=== PATIENT | male | born 1960 | race Two or more races ===

== ENCOUNTER 2017-08-08 11:11 | Inpatient (IN) | payer OTHER ==
[~2017-08-08] VITALS: Ht 175.3 cm; Wt 82.6 kg
--- NOTE | 2017-08-08 11:11 | NUR ---
BIB [facility] C/O CHEST PAIN/PRESSURE 20 MIN MANAGER TALENT. RECEIVED 2 SPRAYS NITRO, [address] PATIENT STATING CHEST PAIN 1/10 RIGHT NOW. BREATHING EVEN AND UNLABORED. NO SOB. VITALS STABLE. EMT AT BEDSIDE FOR EKG. IV INTACT ON LEFT HAND, 20 G. SAFETY AND COMFORT MEASURES IN PLACE. AWAITING MD ORDERS.
--- NOTE | 2017-08-08 11:17 | NUR ---
AT BEDSIDE FOR EVAL
--- NOTE | 2017-08-08 11:21 | NUR ---
IMAGING CLERK AT BEDSIDE
--- NOTE | 2017-08-08 11:23 | NUR ---
SALVAGE MECHANIC AT BEDSIDE FOR BLOOD DRAW.
[2017-08-08 11:33] LABS: BASOPHILS % (AUTO) 0.8 % (0.0-2.0); EOSINOPHILS % (AUTO) 0.9 % (0.0-6.0); HEMATOCRIT 45 % (39-51); HEMOGLOBIN 14.8 g/dL (13.5-17.5); LYMPHOCYTES # (AUTO) 1.5 /CMM (0.8-4.8); LYMPHOCYTES % (AUTO) 29.6 % (20.0-44.0); MEAN CORPUSCULAR HEMOGLOBIN 29 PG (26.0-33.0); MEAN CORPUSCULAR HGB CONC 33 g/dl (31.0-36.0); MEAN CORPUSCULAR VOLUME 88 fL (80-96); MONOCYTES # (AUTO) 0.3 /CMM (0.1-1.30); MONOCYTES % (AUTO) 6.6 % (2.0-12.0); NEUTROPHILS # (AUTO) 3.2 /CMM (1.8-8.9); NEUTROPHILS % (AUTO) 62.1 % (43.0-81.0); PLATELET COUNT (AUTO) 198 /CMM (150-450); RDW COEFFICIENT OF VARIATION 12.6 (11.5-15.0); RED BLOOD CELL COUNT(AUTO) 5.09 MIL/uL (4.5-6.0)
[2017-08-08 11:42] LABS: CALCIUM, SERUM 8.2 mg/dL (8.5-10.1); CREATININE 1.1 mg/dL (0.6-1.3); POTASSIUM 4.4 mmol/L (3.5-5.1)
[2017-08-08 11:46] LABS: INR 1.03 (0.87-1.13); PROTHROMBIN TIME 10.7 SECS (9.5-12.7)
[2017-08-08] MEDS ORDERED: VALS80TA2 PO (11:50)
[2017-08-08 11:51] LABS: TROPONIN I 0.018 ng/mL (0.00-0.056)
--- NOTE | 2017-08-08 12:27 | NUR ---
NEW IV STARTED ON RAC, 18 G FOR CTA.
--- NOTE | 2017-08-08 12:28 | NUR ---
PATIENT TAKEN TO CTA VIA STRETCHER.
--- NOTE | 2017-08-08 12:40 | NUR ---
PATIENT RETURNED FROM CT IN STABLE CONDITION.
--- NOTE | 2017-08-08 13:00 | NUR ---
REPORT GIVEN TO TO SOOD FOR ADMISSION.
--- NOTE | 2017-08-08 13:36 | NUR ---
[facility] PAGED CLIF DANG MOWER SHARPENER [phone]
--- NOTE | 2017-08-08 13:47 | NUR ---
CALLED [employer] TEACHING SUPERVISOR WAS PAGED.
[2017-08-08 14:40] VITALS: BP 123/75
--- NOTE | 2017-08-08 14:40 | NUR ---
RN NOTES RECEIVED PT FOR ER IN ROOM 119-1, A/Ox4, RESPIRATION EVEN AND UNLABORED, NO DISTRESS NOTED, DAVIDSON ANY CHEST PAIN AT THIS TIME. ON TELE SR IN 80'S, L HAND IV G 20 AND R AC G 18 IV SITES CDI, SR UP x3, CALL LIGHT WITHIN EASY REACH , CONTINUE TO MONITOR PT CLOSELY AND NOTIFY MD FOR ANY SIGNIFICANT CHANGES .
--- NOTE | 2017-08-08 14:40 | NUR ---
PATIENT TRANSPORTED TO [facility] VIA ACLS PROTOCOL FOR ADMISSION. RNPAULINA TO PROVIDE DAO.
--- NOTE | 2017-08-08 18:13 | NUR ---
RN NOTES DR HOSKINS ON THE FLOOR SEEING THE PT, NEW ORDER RECEIVED , PT STABLE , ON TELE SR ,SUPPORTIVE FAMILY AT THE BEDSIDE, IVF NS AT 75CC/HR RUNNING VIA R AC IV SITE , CALL LIGHT WITHIN EASY REACH, WILL ENDORSE TO [employer] SURVEILLANCE OFFICER NURSE FOR DAO .
--- NOTE | 2017-08-08 19:20 | NUR ---
RN INITIAL NOTES RECEIVED PATIENT IN BED, AWAKE AND ALERT, PATIENT ON ROOM AIR WITH NO DISTRESS, DENIES ANY PAIN AND DISCOMFORT, NO C/O CHEST PAIN AT THIS TIME. PATIENT IS ALERT AND ORIENTED. SR ON TELE WITH HR OF 68. WITH IVF ORDERED RUNNING ON PATIENT'S R AC G18. WITH L HAND G20, FLUSHED AND PATENT WITH NO SIGNS OF INFILTRATION. PATIENT'S NEEDS ANTICIPATED AND MET. SAFETY AND COMFORT ENSURED. BED IN LOW AND LOCKED POSITION. CALL LIGHT IN REACH. WILL MONITOR.
[2017-08-08 20:00] VITALS: BP 115/67
--- NOTE | 2017-08-08 21:30 | NUR ---
RN NOTES ALL DUE HS MEDS GIVEN ORDERED. PATIENT INFORMED AND UPDATED WITH CURRENT PLAN OF CARE AND DIAGNOSTIC TESTS ORDERED. ALL QUESTIONS ANSWERED NEEDED, PATIENT VERBALIZED UNDERSTANDING. OBTAINED CONSENT FOR THE PLANNED CT OF ABD/PELVIS IN AM, FILED IN CHART. PATIENT'S NEEDS ANTICIPATED AND MET. CALL LIGHT IN REACH.
[2017-08-08 21:40] LABS: FREE PSA 0.46 ng/mL (0.00-45); PROSTATE SPECIFIC ANTIGEN SCR 1.3 ng/mL (0.00-4.00)
[2017-08-09] VITALS: BP 103/46
[2017-08-09 04:00] VITALS: BP 103/56
[2017-08-09 06:30] LABS: BASOPHILS % (AUTO) 0.4 % (0.0-2.0); EOSINOPHILS # (AUTO) 0.1 /CMM (0.0-0.7); EOSINOPHILS % (AUTO) 1.2 % (0.0-6.0); HEMATOCRIT 44 % (39-51); HEMOGLOBIN 15.2 g/dL (13.5-17.5); LYMPHOCYTES # (AUTO) 1.5 /CMM (0.8-4.8); LYMPHOCYTES % (AUTO) 31.5 % (20.0-44.0); MEAN CORPUSCULAR HEMOGLOBIN 30 PG (26.0-33.0); MEAN CORPUSCULAR HGB CONC 35 g/dl (31.0-36.0); MEAN CORPUSCULAR VOLUME 87 fL (80-96); MONOCYTES # (AUTO) 0.4 /CMM (0.1-1.30); MONOCYTES % (AUTO) 8.6 % (2.0-12.0); NEUTROPHILS # (AUTO) 2.7 /CMM (1.8-8.9); NEUTROPHILS % (AUTO) 58.3 % (43.0-81.0); PLATELET COUNT (AUTO) 176 /CMM (150-450); RDW COEFFICIENT OF VARIATION 13.2 (11.5-15.0); RED BLOOD CELL COUNT(AUTO) 5.05 MIL/uL (4.5-6.0); WHITE BLOOD COUNT (AUTO) 4.6 K/uL (4.3-11.0)
--- NOTE | 2017-08-09 06:30 | NUR ---
RN CLOSING NOTES PATIENT WITH NO ACUTE CHANGE IN CONDITION OBSERVED. ON ROOM AIR WITH NO DISTRESS. REMAINS SR AT 68. PATIENT IS AWAKE AND ALERT, NO C/O PAIN AND DISCOMFORT. IVF ORDERED, RUNNING ON PATIENT'S L HAND. PATIENT'S NEEDS ANTICIPATED AND MET. SAFETY AND COMFORT ENSURED. BED IN LOW AND LOCKED POSITION. CALL LIGHT IN REACH. WILL ENDORSE ACCORDINGLY FOR CONTINUITY OF CARE.
[2017-08-09 07:11] LABS: ALBUMIN 3.5 g/dL (3.4-5.0); BILIRUBIN,TOTAL 0.5 mg/dL (0.2-1.0); CALCIUM, SERUM 8.2 mg/dL (8.5-10.1); MAGNESIUM 1.8 mg/dL (1.8-2.4); POTASSIUM 4.2 mmol/L (3.5-5.1); TOTAL PROTEIN, SERUM 6.3 g/dL (6.4-8.2)
[2017-08-09 07:18] LABS: THYROID STIMULATING HORMONE 1.15 uIU/mL (0.358-3.74)
--- NOTE | 2017-08-09 07:20 | NUR ---
WATER TAXI DRIVER NOTES RECEIVED PATIENT IN BED, A/O X4. ON TELE MONITOR SINUS RHYTHM HR 70. APPEARS COMFORTABLE IN BED, ON ROOM AIR, NO SOB. IV NS INFUSING AT 75ML/HR, TOLERATING WELL. DENIES CHEST PAINT. PATIENT IS AMBULATORY. WILL CONT TO MONITOR.
[2017-08-09 08:00] VITALS: BP_SYST 136; BP_DIAS 84; BP_DIAS 89
[2017-08-09 12:00] VITALS: BP 126/85
[2017-08-09 16:00] VITALS: BP 124/81
--- NOTE | 2017-08-09 18:52 | NUR ---
FIRER WATERTENDER CLOSING NOTES PATIENT IN BED, A/O X3. ON TELE MONITOR SINUS RHYTHM HR 63. IV NS INFUSING AT 75ML/HR, TOLERATING WELL, NO SOB. POST PPD TESTING TODAY, LFA SITE LEFT UNCOVERED, NO INDURATION. DENIES CHEST PAIN DURING THE SHIFT. CALL LIGHT WITHIN REACH. ON ISOLATION AIRBORNE PRECAUTION OBSERVED. WILL ENDORSE TO MATERIAL HANDLER 1ST SHIFT RN FOR CONTINUITY OF CARE.
[2017-08-09 20:00] VITALS: BP 111/69
--- NOTE | 2017-08-09 20:00 | NUR ---
RN INITIAL NOTES RECEIVED ENDORSEMENT FROM PREVIOUS SHIFT. PATIENT PLACED ON AIRBORNE PRECAUTION, STRICTLY OBSERVED. PATIENT IS ALERT AND ORIENTED, DENIES ANY PAIN AND DISCOMFORT. PATIENT WITH NO DISTRESS. ON ROOM AIR. SR ON TELE WITH HR OF 64. PATIENT ABLE TO TAKE SHOWER PER REQUEST WITH ORDER OBTAINED. PATIENT WITH NO DISTRESS DURING SHOWER. REQUESTED TO BE OFF IVF AT THIS TIME TO REST AND DO ADLS. R AC AND L HAND PIV, FLUSHED AND PATENT, NO SIGNS OF INFILTRATION. PPD TEST DONE ON PATIENT'S L FOREARM, CHECKED AND NOTED WITH NO INDURATION AND REDNESS AT THIS TIME, LEFT UNCOVERED. UPDATED PATIENT WITH PLAN OF CARE, VERBALIZED UNDERSTANDING. PATIENT'S NEEDS ANTICIPATED AND MET. SAFETY AND COMFORT ENSURED. BED IN LOW AND LOCKED POSITION. CALL LIGHT IN REACH. WILL MONITOR.
[2017-08-10] VITALS: BP 103/69
[2017-08-10 04:00] VITALS: BP 108/70
--- NOTE | 2017-08-10 06:49 | NUR ---
RN CLOSING NOTES PATIENT WITH NO ACUTE DISTRESS OBSERVED OVERNIGHT. PATIENT WITH NO C/O PAIN AND DISCOMFORT. REMAINS SR ON TELE WITH HR KEPT IN THE 60s. ISOLATION PRECAUTIONS STRICLTY OBSERVED. NEEDS ANTICIPATED AND MET. SAFETY AND COMFORT ENSURED. BED IN LOW AND LOCKED POSITION. CALL LIGHT IN REACH. WILL ENDORSE ACCORDINGLY FOR CONTINUITY OF CARE. REMINDED PATIENT OF THE NEEDED SPUTUM SPECIMEN AND STOOL. PATIENT VERBALIZED UNDERSTANDING. WILL ENDORSE ACCORDINGLY FOR COLLECTION.
[2017-08-10 08:00] VITALS: BP 127/85
--- NOTE | 2017-08-10 11:58 | NUR ---
PER LAB SPUTUM SPECIMEN COLLECTED NOT ENOUGH FOR [employer],NEED TO REOBTAIN SPECIMEN AGAIN,RT MADE AWARE TO INDUCE SPUTUM.
[2017-08-10 12:00] VITALS: BP 113/68
--- NOTE | 2017-08-10 14:40 | NUR ---
SECOND SPECIMEN SEND TO LAB FOR [employer].
[2017-08-10 16:00] VITALS: BP 114/72
--- NOTE | 2017-08-10 19:51 | NUR ---
INDUSTRIAL ANALYST NOTE PT IN HIS ROOM PACING. A/O X 4, NO SOB, NO DISTRESS OR DISCOMFORT NOTED. DENIES ANY PAIN. ISOLATION FOR RO TB. ISOLATION PRECAUTIONS TAKEN. S/L IN RAC #18 G INTACT AND PATENT. SIDE RAILS UP X 2 AND CALL LIGHT WITHIN REACH. VSS. CONTINUE TO MONITOR HIM. Addendum: 08/10/17 at 1953 by GIO MCKEON RN REMINDED PT NOT DRINK ANY COFFEE AND WILL BE NOTHING BY MOUTH AFTER MIDNIGHT. PT STATES "OK".
--- NOTE | 2017-08-10 19:54 | NUR ---
ACCT EXEC NOTE ON TELE SR HR 74.
[2017-08-10 20:00] VITALS: BP 121/73
[2017-08-11 04:00] VITALS: BP 108/75
[2017-08-11 05:00] VITALS: BP 98/69
--- NOTE | 2017-08-11 06:00 | NUR ---
RN NOTE RT GAVE TX TO INDUCE SPUTUM ORDERED.
--- NOTE | 2017-08-11 06:21 | NUR ---
RN NOTE PT IN BED AWAKE. NO DISTRESS OR DISCOMFORT NOTED. DENIES PAIN. PT IS NPO. ON TELE SR HR 60. SIDE RAILS UP X 2 AND CALL LIGHT WITHIN REACH. WILL ENDORSE TO DAYS SHIFT NURSE FOR CONTINUE TO CARE.
[2017-08-11 08:00] VITALS: BP 109/69
[2017-08-11 12:00] VITALS: BP 122/69
[2017-08-11 15:59] VITALS: BP 116/72
[2017-08-11 16:00] VITALS: BP 116/72
[2017-08-11] MEDS ORDERED: ASPI-991 PO (16:53)
--- NOTE | 2017-08-11 17:30 | NUR ---
RN NOTE PT LEFT HOSPITAL AMA, HE SIGNED PAPERS, PAPERS AND IMAGING PROVIDED, PT STABLE, AMBULATORY AND AOX4, LEFT WITH FAMILY MEMBER.
== END 2017-08-11 17:53 | disposition left against medical advice (07) | DRG 206 ==
LOC: ER 11:12 → TELE1 14:20 → MEDSG1 08-11 14:10
PROVIDERS: ADMIT Nurse Practitioner Acute Care; ATTEND Nurse Practitioner Acute Care
DX: M94.0 Chondrocostal junction syndrome [Tietze] (principal); E83.51 Hypocalcemia; F17.290 Nicotine dependence, other tobacco product, uncomplicated; I10 Essential (primary) hypertension; K21.9 Gastro-esophageal reflux disease without esophagitis; N40.0 Benign prostatic hyperplasia without lower urinary tract symptoms; R73.9 Hyperglycemia, unspecified; R91.8 Other nonspecific abnormal finding of lung field
CPT/HCPCS: 36415; 71010-TC; 74178; 80048-TC; 80053-TC; 80061-TC; 82164; 82378; 83735-TC; 84100-TC; 84153-TC; 84154-TC; 84443-TC; 84484-TC; 85025-TC; 85730-TC; 86580-TC; 87081-TC; 87116; 87206; 87899; 88305-TC; 88312-TC; 93307-TC; 94640-TC; A4218; A9502; J1650; J2785; J7030; J7040; J7050; Q9967